=== PATIENT | male | born 1960 | race Caucasian/White ===

== ENCOUNTER 2022-03-05 14:34 | Emergency (ER) | payer OTHER, SELFPAY ==
[2022-03-05 14:34] VITALS: BP 103/65; BP 116/65; PULSE 57; PULSE 60; RESP 16; TEMP 36.4; O2SAT 98; O2SAT 99; BMI 23.0
--- NOTE | 2022-03-05 14:34 | PC.NURSE ---
CHLOÉ MEANS at upon pt arrival, CHLOÉ MEANS removed pt from c-collar and back board.
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
--- NOTE | 2022-03-05 14:59 | PC.NURSE ---
XR AT BEDSIDE
[2022-03-05 15:01] VITALS: BP 113/65; PULSE 59; O2SAT 99
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
--- NOTE | 2022-03-05 15:53 | PC.NURSE ---
rounded on pt at this time, pt resting in bed, pt states no needs at this time.
[2022-03-05 16:00] VITALS: PULSE 62; O2SAT 95
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
--- NOTE | 2022-03-05 16:21 | PC.NURSE ---
pt to CT with restorative care technician x 2 via by stretcher
--- NOTE | 2022-03-05 16:56 | PC.NURSE ---
Dr. Nima hannon for ER MD
[2022-03-05 17:00] VITALS: PULSE 61; O2SAT 99
--- NOTE | 2022-03-05 17:18 | PC.NURSE ---
Dr. Sauer speaking with Dr. Herring at this time
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
--- NOTE | 2022-03-05 17:55 | PC.NURSE ---
repot given to lilirn
--- NOTE | 2022-03-05 17:59 | PC.NURSE ---
MDs called back and is speaking with Dr. Sauer at this time
--- NOTE | 2022-03-05 18:01 | PC.NURSE ---
ED MD AT BEDSIDE TO UPDATE PT AND FAMILY ON POC.
--- NOTE | 2022-03-05 18:18 | PC.NURSE ---
assisted MD with splinting left leg
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
[2022-03-05 18:42] VITALS: BP 102/67; PULSE 60; O2SAT 99
[2022-03-05 18:50] LABS: Basophils # 0.1 K/mm3 (0-0.2); Basophils % 0.3 % (0.1-2.0); Eosinophils # 0.1 K/mm3 (0.0-0.4); Eosinophils % 0.5 % (0.1-12.0); Lymphocytes # 1.7 K/mm3 (0.7-4.5); Lymphocytes % 11.4 % (10-50); Mean Corpuscular Hemoglobin 32.3 pg (27.0-31.2); Mean Corpuscular Volume 95.2 fl (80-94); Mean Platelet Volume 7.5 fl (7.4-10.4); Monocytes # 0.9 K/mm3 (0.1-1.0); Monocytes % 6.2 % (1.7-9.3); Neutrophils # 11.9 K/mm3 (1.8-7.8); Neutrophils % 81.5 % (37.0-80.0); Platelet Count 301 K/mm3 (142-424); Red Blood Count 4.63 M/mm3 (4.60-6.20); Red Cell Distribution Width 13.4 % (11.5-17.5); White Blood Count 14.5 K/mm3 (4.8-10.8)
[2022-03-05 18:51] LABS: Chloride 108 mmol/L (98-107)
[2022-03-05 18:52] LABS: Potassium 4.1 mmoL/L (3.5-5.1); Sodium 138 mmol/L (136-145)
[2022-03-05 18:54] VITALS: BP 102/67; PULSE 60; RESP 18; TEMP 36.4; O2SAT 99
[2022-03-05 18:54] LABS: Anion Gap 11.1 mEq/L (5-15); Carbon Dioxide 23 mmol/L (22.0-30.0)
[2022-03-05 18:55] LABS: Blood Urea Nitrogen 23 mg/dl (9-20); Creatinine Clearance Estimated 79 mL/min (50-200); Estimated Glomerular Filt Rate 85 ml/min (>60); GFR (African American) 103 ML/MIN (>60)
[2022-03-05 18:56] LABS: Calcium 9.5 mg/dl (8.4-10.2); Glucose 88 mg/dl (74-100)
== END 2022-03-05 19:28 ==
PROVIDERS: Emergency Provider Emergency Medicine
DX: S82.252A Displaced comminuted fracture of shaft of left tibia, initial encounter for closed fracture (principal); S63.250A Unspecified dislocation of right index finger, initial encounter; S61.210A Laceration without foreign body of right index finger without damage to nail, initial encounter; V49.50XA Passenger injured in collision with unspecified motor vehicles in traffic accident, initial encounter; Z23 Encounter for immunization
CPT/HCPCS: 12001; 26770; 29515; 70450; 72125; 73120; 73562; 80048; 85025; 90471; 90715; 96365; 96375; 99285; J2405